=== PATIENT | male | born 1995 | race American Indian/Alaskan Native ===

== ENCOUNTER 2017-02-12 16:56 | Emergency (ER) | payer OTHER ==
[2017-02-12 17:06] VITALS: BP 105/62
[2017-02-12 17:42] LABS: Anion Gap 18 mmol/L; BUN/Creatinine Ratio 11.11; Blood Urea Nitrogen 10 mg/dL (9-20); Carbon Dioxide 24 mmol/L (22-30); Chloride 101.6 mmol/L (98-107); Glucose 82 mg/dL (75-100); Potassium 3.8 mmol/L (3.6-5.0); Sodium 140 mmol/L (137-145)
[2017-02-12 17:49] LABS: Basophils % (Auto) 0.7 % (0.0-1.8); Eosinophils % (Auto) 0.6 % (0.0-4.3); Hematocrit 44.7 % (35.5-45.6); Hemoglobin 15.5 gm/dl (11.8-15.2); Mean Corpuscular HGB Conc 35 % (32-34); Mean Corpuscular Hemoglobin 31 pg (28-32); Mean Corpuscular Volume 89 fl (84-94); Platelet Count 260 K/mm3 (140-440); Red Blood Count 5.01 M/mm3 (3.65-5.03); Red Cell Distribution Width 13.2 % (13.2-15.2); White Blood Count 4.1 K/mm3 (4.5-11.0)
--- NOTE | 2017-02-15 14:53 | ED Elopement Review ---
ED Pt Elopement review - Results review Lab results: Laboratory Tests 02/12/17 02/12/17 02/12/17 17:12 17:12 17:12 WBC 4.1 L RBC 5.01 Hgb 15.5 H Hct 44.7 MCV 89 MCH 31 MCHC 35 H RDW 13.2 Plt Count 260 Lymph % (Auto) 37.6 H [place] % (Auto) 10.6 H Eos % (Auto) 0.6 Baso % (Auto) 0.7 Lymph # 1.5 [place] # 0.4 Eos # 0.0 Baso # 0.0 Seg Neutrophils % 50.5 Seg Neutrophils # 2.1 Sodium 140 Potassium 3.8 Chloride 101.6 Carbon Dioxide 24 Anion Gap 18 BUN 10 Creatinine 0.9 Estimated GFR > 60 BUN/Creatinine Ratio 11.11 Glucose 82 Calcium 9.0 Plasma/Serum Alcohol < 0.01 - Call Back decision Pt Call Back Decision: Pt to F/U with PMD
== END 2017-02-12 21:00 | disposition left against medical advice (07) ==
LOC: ED 16:56
DX: Z53.21 Procedure and treatment not carried out due to patient leaving prior to being seen by health care provider (principal)
CPT/HCPCS: 36415; 80048; 85025; G0480; 80320